=== PATIENT | male | born 1955 | race Caucasian/White ===

== ENCOUNTER → 2018-07-12 | Outpatient (CLI) | payer OTHER ==
[~2018-07-12] MED LIST: AMLO10TA6 PO; ASPI-621 PO; FLUT9.9S NAS; INSU100C SQ-INSULIN; INSU100I34 SC; LORA10TA75 PO; LOSA1TAB25 PO
[2018-07-12 08:59] LABS: BASOPHILS # (AUTO) 0.06 x10^3/uL (0-0.1); BASOPHILS % (AUTO) 1 % (0-1); EOSINOPHILS # (AUTO) 0.22 x10^3/uL (0-0.4); EOSINOPHILS % (AUTO) 4 % (1-7); LYMPHOCYTES # (AUTO) 1.14 x10^3/uL (1-3.4); LYMPHOCYTES % (AUTO) 21 % (22-44); MD NO; MEAN CORPUSCULAR HEMOGLOBIN 25.5 pg (27.5-34.5); MEAN CORPUSCULAR HGB CONC 32.9 g/dL (33.2-36.2); MEAN CORPUSCULAR VOLUME 77.6 fL (81-97); MEAN PLATELET VOLUME 10.4 fL (7.4-10.4); MONOCYTES # (AUTO) 0.48 x10^3/uL (0.2-0.8); MONOCYTES % (AUTO) 9 % (2-9); NEUTROPHILS # (AUTO) 3.61 x10^3/uL (1.8-6.8); NEUTROPHILS % (AUTO) 66 % (42-75); PLATELET COUNT 229 x10^3/uL (130-400); RED BLOOD COUNT 5.03 x10^6/uL (4.38-5.82); RED CELL DISTRIBUTION WIDTH 16.9 % (9.4-14.8)
[2018-07-12 09:01] LABS: ALANINE AMINOTRANSFERASE 23 U/L (12-78); ALBUMIN 3.6 g/dL (3.4-5.0); ANION GAP 10 mmol/L (5-15); CHLORIDE 103 mmol/L (98-107); CREATININE 1.01 mg/dL (0.7-1.3)
[2018-07-12 09:04] LABS: ALKALINE PHOSPHATASE 68 U/L (45-117); BILIRUBIN,TOTAL 0.5 mg/dL (0.2-1.0); TOTAL PROTEIN 7.7 g/dL (6.4-8.2)
[2018-07-12 09:25] LABS: INTERNATIONAL NORMALIZED RATIO 1.01 (0.93-1.1); PROTHROMBIN TIME 10.4 Seconds (9.6-11.5)
[2018-07-12 09:48] LABS: CULTURE INDICATED? NO; MICROSCOPIC NOT IND
[2018-07-12 10:22] LABS: HEMOGLOBIN A1C 8.3 % (4.2-6.3)
== END | disposition home or self-care (01) ==
LOC: STAR 07:52
PROVIDERS: ATTEND Neurological Surgery
DX: Z01.818 Encounter for other preprocedural examination (principal); M51.36 Other intervertebral disc degeneration, lumbar region; M41.86 Other forms of scoliosis, lumbar region; M48.061 Spinal stenosis, lumbar region without neurogenic claudication
CPT/HCPCS: 36415; 71046; 72114; 80053; 81003; 83036; 85025; 85610; 85730; 93005

== ENCOUNTER 2018-07-23 08:51 | Observation (INO) | payer OTHER ==
[~2018-07-23] VITALS: Ht 170.2 cm; Wt 91.9 kg
[~2018-07-23 08:51] MED LIST changes: +BACITRACIN 50,000 UNIT ONE; +BUPIVACAINE/PF-EPI 0.5% 1:200K ONE; +THROMBIN 5,000 UNIT VIAL TP ONE
[2018-07-23] MEDS ORDERED: LACTATED RINGERS 1,000 ML IV SCH (09:06)
[2018-07-23] MEDS ORDERED: MIDAZOLAM 1 MG/ML, 2ML ONE (09:52)
[2018-07-23] MEDS ORDERED: FENTANYL PF 250 MCG/5ML ONE (09:53)
[2018-07-23] MEDS ORDERED: CEFAZOLIN 1,000 MG ONE (10:19)
[2018-07-23] MEDS ORDERED: GLYCOPYRROLATE 0.2MG/1ML, 5ML ONE (10:19)
[2018-07-23] MEDS ORDERED: ONDANSETRON 2MG/ML, 2ML ONE ×2 (10:19)
[2018-07-23] MEDS ORDERED: ROCURONIUM 10MG/ML,5ML ONE (10:19)
[2018-07-23] MEDS ORDERED: DEXAMETHASONE 4 MG/ML, 1ML ONE (10:19)
[2018-07-23] MEDS ORDERED: NEOSTIGMINE 1 MG/ML, 10ML ONE (10:19)
[2018-07-23] MEDS ORDERED: PROPOFOL 10 MG/ML, 20ML ONE (10:19)
[2018-07-23] MEDS ORDERED: SUCCINYLCHOLINE 20 MG/ML, 10ML ONE (10:19)
[2018-07-23] MEDS ORDERED: MEPERIDINE/PF 25MG/0.5ML IVPush PRN (10:30)
[2018-07-23] MEDS ORDERED: LABETALOL 5MG/ML, 20ML IV PRN (10:30)
[2018-07-23] MEDS ORDERED: ACETAMINOPHEN 325 MG TABLET PO PRN (10:30)
[2018-07-23] MEDS ORDERED: PROMETHAZINE 25 MG/ML, 1ML IV PRN (10:30)
[2018-07-23] MEDS ORDERED: hydrALAzine 20 MG/ML, 1ML IV PRN (10:30)
[2018-07-23] MEDS ORDERED: DIAZEPAM 5 MG/ML, 2ML IVPush PRN (10:30)
[2018-07-23] MEDS ORDERED: ONDANSETRON ODT 8 MG PO PRN (10:30)
[2018-07-23] MEDS ORDERED: FENTANYL PF 100 MCG/2ML IV PRN (10:30)
[2018-07-23] MEDS ORDERED: OXYcodone 5 MG/5 ML ORAL.SOL UDC PO PRN (10:30)
[2018-07-23] MEDS ORDERED: MORPHINE SULFATE 4 MG/ML, 1ML IVPush PRN (10:30)
[2018-07-23] MEDS ORDERED: ONDANSETRON 2MG/ML, 2ML IV PRN ×2 (10:30→14:00)
[2018-07-23] MEDS ORDERED: HYDROmorphone 1 MG/ML, 1ML IV PRN (10:30)
[2018-07-23] MEDS ORDERED: FENTANYL PF 100 MCG/2ML ONE (11:03)
[2018-07-23] MEDS ORDERED: ACETAMINOPHEN 650 MG/20.3 ML UDC ONE (11:57)
[2018-07-23] MEDS ORDERED: OXYcodone 5 MG/5 ML ORAL.SOL UDC ONE ×2 (11:57→11:59)
[2018-07-23] MEDS ORDERED: TIZANIDINE 4MG TABLET PO PRN (14:00)
[2018-07-23] MEDS ORDERED: HYDROcodone/APAP 10/325 MG TABLET PO PRN (14:00)
[2018-07-23] MEDS ORDERED: NS + 20MEQ KCL 1,000 ML IV SCH (14:00)
[2018-07-23] MEDS ORDERED: PROMETHAZINE 25 MG/ML, 1ML IM PRN (14:00)
[2018-07-23] MEDS ORDERED: DIAZEPAM 5 MG TABLET PO PRN (14:00)
[2018-07-23] MEDS ORDERED: OXYcodone/APAP 5/325MG TABLET PO PRN (14:00)
[2018-07-23] MEDS ORDERED: BISACODYL 10 MG SUPP PR PRN (14:00)
[2018-07-23] MEDS ORDERED: HYDROmorphone 2MG TABLET PO PRN (14:00)
[2018-07-23] MEDS ORDERED: DIPHENHYDRAMINE 50 MG/ML, 1ML IVPush PRN (14:00)
[2018-07-23] MEDS ORDERED: DIAZEPAM 5 MG/ML, 2ML IV PRN (14:00)
[2018-07-23] MEDS ORDERED: DIPHENHYDRAMINE 25 MG CAPSULE PO PRN (14:00)
[2018-07-23] MEDS ORDERED: MAGNESIUM HYDROXIDE 8%, 30ML UDC PO PRN (14:00)
[2018-07-23] MEDS ORDERED: EPHEDRINE 50 MG/ML, 1ML ONE (15:58)
[2018-07-23] MEDS ORDERED: INSULIN LISPRO SQ-INSULIN SCH (16:00)
[2018-07-23] MEDS ORDERED: [UNRECOGNIZED DRUG - OTHER] SQ-INSULIN SCH (16:00)
[2018-07-23 16:10] VITALS: BP 147/84
[2018-07-23] MEDS ORDERED: OXYC-302 PO (16:26)
[2018-07-23] MEDS ORDERED: TIZA2CAP2 PO (16:27)
[2018-07-23] MEDS ORDERED: POLY17PO5 PO (16:27)
[2018-07-23] MEDS ORDERED: CEFAZOLIN PMX 1GM/50ML 50 ML IVPB SCH (18:00)
[2018-07-23] MEDS ORDERED: FLUTICASONE NASAL SPRAY 16GM NAS SCH (21:00)
[2018-07-24] MEDS ORDERED: LORATADINE 10 MG TABLET PO SCH (09:00)
[2018-07-24] MEDS ORDERED: HYDROCHLOROTHIAZIDE 12.5 MG CAPSULE PO SCH (09:00)
[2018-07-24] MEDS ORDERED: AMLODIPINE 10 MG TAB PO SCH (09:00)
[2018-07-24] MEDS ORDERED: SENNA/DOCUSATE TABLET PO SCH (09:00)
[2018-07-24] MEDS ORDERED: INSULIN GLARGINE 100 UNITS/ML, PEN SQ-INSULIN SCH (09:00)
[2018-07-24] MEDS ORDERED: LOSARTAN 50MG TABLET PO SCH (09:00)
== END 2018-07-23 17:05 | disposition home or self-care (01) ==
LOC: OUT 08:51 → 4NOR 12:35 → OUT 13:44
PROVIDERS: ADMIT Neurological Surgery; ATTEND Neurological Surgery
DX: M48.062 Spinal stenosis, lumbar region with neurogenic claudication (principal); I10 Essential (primary) hypertension; E11.9 Type 2 diabetes mellitus without complications
CPT/HCPCS: 63047; 63048; 72100; 82962; G0378; J0330; J0690; J1100; J2250; J2270; J2405; J2704; J3010; J7120; J2710; J3490